=== PATIENT | female | born 2000 | race Caucasian/White ===

== ENCOUNTER → 2021-12-09 15:01 | Outpatient (BNVA) | payer MEDICAID, SELFPAY | PROVIDERS: Visit Provider Obstetrics & Gynecology | DX: Z34.90 Encounter for supervision of normal pregnancy, unspecified, unspecified trimester (principal) | CPT/HCPCS: 80307; 81000; 85027; 86592; 86762; 86803; 86850; 86900; 87086; 87340; 87491; 87591; 87806 ==

== ENCOUNTER → 2022-02-07 14:09 | Outpatient (BNVA) | payer MEDICAID, SELFPAY | PROVIDERS: Visit Provider Obstetrics & Gynecology | DX: Z36.89 Encounter for other specified antenatal screening (principal) | CPT/HCPCS: 76805 ==

== ENCOUNTER → 2022-02-21 13:42 | Outpatient (BNVA) | payer MEDICAID, SELFPAY | PROVIDERS: Visit Provider Obstetrics & Gynecology | DX: Z34.80 Encounter for supervision of other normal pregnancy, unspecified trimester (principal) | CPT/HCPCS: 81000 ==

== ENCOUNTER → 2022-03-07 14:10 | Outpatient (BNVA) | payer MEDICAID, SELFPAY | PROVIDERS: Visit Provider Obstetrics & Gynecology | DX: Z34.92 Encounter for supervision of normal pregnancy, unspecified, second trimester (principal) | CPT/HCPCS: 82950; 84315 ==

== ENCOUNTER → 2022-04-04 10:22 | Outpatient (BNVA) | payer MEDICAID, SELFPAY | PROVIDERS: Visit Provider Obstetrics & Gynecology | DX: Z34.92 Encounter for supervision of normal pregnancy, unspecified, second trimester (principal) | CPT/HCPCS: 84315; 85027 ==

== ENCOUNTER 2022-04-27 06:18 | Outpatient (CLI) | payer MEDICAID, SELFPAY ==
--- NOTE | 2022-04-27 06:24 | US_ITS ---
WS: [id number] Exam: US OB >= 14 weeks fetus [id number] Date/Time of Exam: 04/27/2022 6:24 AM Reason For Exam: O26.843 - Uterine size-date discrepancy, third trimester NUMBER: One PRESENTATION: Vertex CARDIAC ACTIVITY: 133 MOVEMENT: Satisfactory AMNIOTIC FLUID VOLUME: Satisfactory. ESTRADA is 16.4 cm PLACENTA: Anterior. No placenta previa. Grade 2. BIPARIETAL DIAMETER MEASUREMENTS: 7.9 cm, equals 31w6d. FEMORAL LENGTH MEASUREMENTS: 5.9 cm, equals 31w0d. ABDOMINAL CIRCUMFERENCE: 26.6 cm, equals 30w5d. ESTIMATED WEIGHT: 1672 g. ESTIMATED GESTATIONAL AGE: 31w2d US/US OB >= 14 weeks fetus [id number] IMPRESSION: Viable intrauterine with single fetus estimated at 31w2d MARISA 06/27/20 22.
== END 2022-04-27 06:19 | disposition home or self-care (01) ==
LOC: RAD 06:18
PROVIDERS: Visit Provider Obstetrics & Gynecology
DX: O26.843 Uterine size-date discrepancy, third trimester (principal)
CPT/HCPCS: 76805

== ENCOUNTER → 2022-05-15 14:04 | Outpatient (BNVA) | payer MEDICAID, SELFPAY | PROVIDERS: Visit Provider Obstetrics & Gynecology | DX: Z34.80 Encounter for supervision of other normal pregnancy, unspecified trimester (principal) | CPT/HCPCS: 81000 ==

== ENCOUNTER → 2022-05-31 09:21 | Outpatient (BNVA) | payer MEDICAID, SELFPAY | PROVIDERS: Visit Provider Obstetrics & Gynecology | DX: O26.843 Uterine size-date discrepancy, third trimester (principal); Z3A.00 Weeks of gestation of pregnancy not specified | CPT/HCPCS: 81000; 87081 ==

== ENCOUNTER → 2022-06-05 11:06 | Outpatient (BNVA) | payer MEDICAID, SELFPAY | PROVIDERS: Visit Provider Obstetrics & Gynecology | DX: Z34.80 Encounter for supervision of other normal pregnancy, unspecified trimester (principal) | CPT/HCPCS: 81000 ==

== ENCOUNTER 2022-06-06 09:50 | Outpatient (CLI) | payer MEDICAID, SELFPAY ==
[2022-06-06 10:11] VITALS: BP 117/69; PULSE 96
[2022-06-06 10:20] VITALS: BMI 23.1
[2022-06-06 10:24] VITALS: RESP 16; TEMP 36.1
[2022-06-06] MEDS: acetaminophen 325 mg Tablet 650 MG PO (10:39)
[2022-06-06 11:15] LABS: Add Urine Culture? Yes; Bacteria Urine 3+ /hpf; Bilirubin Urine Neg (Negative); Blood Urine Neg (Negative); Glucose Urine UA Norm (Normal); Ketones Urine Negative (Negative); Leukocyte Esterase Urine Negative (Negative); Nitrate Urine Negative (Negative); Protein Urine Neg (Negative); RBC Urine 0-4 /hpf (0-2); Urine Appearance Clear (CLEAR); Urine Color Yellow (Yellow); Urobilinogen Urine Norm (Negative); WBC Urine 0-4 /hpf (0-5); pH Urine 7 (5-7)
[2022-06-06 11:32] VITALS: BP 110/62; PULSE 89
[2022-06-06 11:45] VITALS: BP 110/62; PULSE 89
--- NOTE | 2022-06-06 14:03 | P.PCN_ITS ---
Procedure/Consent Procedure Narrative: NONSTRESS TEST: Place of test: [facility] [place]-L&D Indication: 21-year-old 1 para 0 at 37 weeks and 1 day with abdominal pain/back pain Date and time of test:06/06/2022, 11 AM Baseline: 125 Variability: Moderate variability Accelerations: Accelerations present Decelerations: No decelerations Tocometry: no Contractions INTERPRETATION: NST reactive, continue kick counts
== END 2022-06-06 11:45 | disposition home or self-care (01) ==
LOC: OPOB 09:55 → OBGYN 09:56
PROVIDERS: Visit Provider Obstetrics & Gynecology
DX: O26.899 Other specified pregnancy related conditions, unspecified trimester (principal); Z3A.00 Weeks of gestation of pregnancy not specified; M54.9 Dorsalgia, unspecified; R10.9 Unspecified abdominal pain
CPT/HCPCS: 59025; 81001; 87086; 99211

== ENCOUNTER → 2022-06-26 09:25 | Outpatient (BNVA) | payer MEDICAID, SELFPAY | PROVIDERS: Visit Provider Obstetrics & Gynecology | DX: Z36.4 Encounter for antenatal screening for fetal growth retardation (principal) | CPT/HCPCS: 76819 ==

== ENCOUNTER → 2022-06-26 10:00 | Outpatient (BNVA) | payer MEDICAID, SELFPAY | PROVIDERS: Visit Provider Obstetrics & Gynecology | DX: O26.843 Uterine size-date discrepancy, third trimester (principal); Z3A.00 Weeks of gestation of pregnancy not specified | CPT/HCPCS: 81000 ==

== ENCOUNTER 2022-06-30 21:00 | Inpatient (IN) | payer MEDICAID, SELFPAY ==
[2022-06-30] VITALS (39 sets, daily range): BP systolic 97–145; BP diastolic 51–83; PULSE 69–109; RESP 18; TEMP 36.4; O2SAT 91–100; BMI 25.3
[2022-06-30] MEDS: miSOPROStol 100 mcg tablet 25 MCG VAGINAL (15:48)
[2022-06-30 15:54] LABS: Basophils # 0.1 10^3/uL (0.0-0.1); Basophils % 0.4 %; Eosinophils # 0.1 10^3/uL (0.0-0.8); Eosinophils % 0.6 %; Hematocrit 31.7 % (37.0-47.0); Hemoglobin 10.8 g/dL (11.5-15.3); Lymphocytes # 1.7 10^3/uL (1.5-6.5); Lymphocytes % 13.4 %; Mean Corpuscular HGB Conc 34.1 g/dL (30.0-36.0); Mean Corpuscular Hemoglobin 31.8 pg (28.0-34.0); Mean Corpuscular Volume 93.2 fl (81-99); Mean Platelet Volume 10.6 fL (7.4-10.4); Monocytes # 0.7 10^3/uL (0.2-0.9); Monocytes % 5.4 %; Neutrophils # 9.73 10^3/uL (1.8-8.0); Neutrophils % 77.6 %; Nucleated Red Blood Cells % 0 %; Platelet Count 246 10^3/cmm (130-400); Red Cell Distribution Width 13.5 % (12.1-15.1); White Blood Count 12.5 10^3/uL (4.5-13.0)
--- NOTE | 2022-06-30 17:47 | PM.OPHPUD ---
Labor & Delivery H&P Update Date of Procedure: July 01, 2022 Date H&P Performed: 06/19/22 H&P update information: I have reviewed H&P completed within last 30 days, I have examined patient prior to procedure and No changes to prior documentation Admission Diagnosis: Preop diagnosis: Labor pain
--- NOTE | 2022-06-30 21:35 | ANES.PREANE2 ---
Pre-Anesthetic Assessment Height/Weight: Height 1.68 m Weight 71.214 kg Temp Pulse Resp BP Pulse Ox O2 Del Method 97.5 F L 93 18 116/61 91 06/30/22 15:13 06/30/22 21:31 06/30/22 15:07 06/30/22 21:31 06/30/22 21:27 06/30/22 16:00 Preop Diagnosis: Labor pain MANUEL Was Beta Dave taken within 24 hours: N/A Was Clonidine taken within 24 hours: N/A Social No alcohol and No tobacco Airway Submandibular: within normal limits Cervical ROM: within normal limits Mallampati: Class II Dentition: full History/ROS No significant history except as noted and No significant complaints Pulmonary None reported CV/HEM None reported None reported Hepatic None reported GI None reported Metabolic None reported Musc/skel None reported Neuropsych Anxiety Anesthetic Plan ASA status: 2 Anesthesia: Anesthesia Evaluation and Regional (specify below) Risk of > 500 ml blood loss (7ml/kg in children): No Medications/Allergies Home Medications Medication Instructions Recorded Confirmed Last Taken Type prenat.vits,alison,fkn-bpxp-vsyea 1 tab PO DAILY 12/09/21 06/30/22 06/29/22 21:00 History Allergies Allergy/AdvReac Type Severity Reaction Status Date / Time amoxicillin Allergy Severe rash Verified 06/26/22 10:46 Current Medications Generic Name Dose Route Start Last Admin Trade Name Freq PRN Reason Stop Dose Admin Misoprostol 25 mcg 06/30/22 15:15 06/30/22 15:48 Misoprostol 100 Mcg Tablet VAGINAL 06/30/22 23:16 25 mcg Q4H SHANNON Administration PFSH Anesthesia Family History Grandmother Stroke maternal Denies family history of Colon cancer Ovarian cancer Diabetes Clotting disorder Hyperlipidemia Breast cancer Anesthesia complication Bleeding disorder Hypertension Uterine cancer Thyroid condition Female Reproductive History : 1 Data Anesthesia : 06/30/22 15:30 Short CBC 06/30/22 Range/Units 15:30 WBC 12.5 (4.5-13.0) 10^3/uL Hgb 10.8 L (11.5-15.3) g/dL Hct 31.7 L (37.0-47.0) % MCV 93.2 (81-99) fl Plt Count 246 (130-400) 10^3/cmm Neut % (Auto) 77.6 % Neut # (Auto) 9.73 H (1.8-8.0) 10^3/uL Cardiac Studies: No Data to Display
--- NOTE | 2022-06-30 21:36 | ANES.PROC ---
Anesthesia Procedures Procedure/Date: 06/30/22 Epidural: Time Out Performed: Yes Consents Signed: Procedure Consent Consent: requested by attending/covering physician, from patient, risks and benefits reviewed and patient agrees to proceed Lumbar Level: L3-L4 Epidural position: sitting Epidural procedure: sterile prep of area, 1% lidocaine to numb the area, 18 g needle, neg for paresthesia, test dose given, 1.5% xylocaine 1:200k epi (5cc), 0.2% Ropivacaine bolus ml (4cc and Fentanyl 100mcg), placed PCEA, no systemic response, sterile dressing applied, L.U.D. no apparent complications and 0.2% Ropiavacaine @ mls/hr (13cc/hour) Additional Comments: NESHA at 6cm. Pt tolerated well
[2022-06-30] MEDS: acetaminophen 325 mg Tablet 650 MG PO (22:10)
[2022-06-30] MEDS: lactated ringers 1,000 ML 999 ML IV (22:11)
[2022-07-01] VITALS (34 sets, daily range): BP systolic 94–128; BP diastolic 53–75; PULSE 71–116; RESP 16–18; TEMP 36.6–36.8
--- NOTE | 2022-07-01 02:48 | P.PCNOB_ITS ---
Delivery Note: Date of delivery: July 01, 2022 Pre-delivery diagnoses: Term Post-delivery diagnoses: Term delivered Procedure: Spontaneous vaginal delivery Delivering Physician: Tye Doyle MD Estimated blood loss (mL): 300 Pre-Delivery Course: Ms. Goins is a 21 year old uncertain LMP of 09/19/2021 with an MARISA of 06/26/2022 based on LMP and consistent with 13 week sonogram, placing her at 40-4/7 weeks gestation. Admitted for elective induction. HPI: Received appropriate care. Daily vitamins since two months prior to conception. labs have all been normal, including negative for HIV. She was found to negative for Group B Strep from screening at 36 weeks. She has gained approximately 30 lbs throughout the . She denies a history of HTN during . Glucose tolerance screening for gestational diabetes was negative. Delivery: The patient was noted to be complete and pushing, so was placed in the dorsal lithotomy position, prepped and draped in the usual sterile fashion for a vaginal delivery. Pt. Noted to have epidural anesthesia. At [time] the patient delivered a viable term male weighing 3550 g with scores of 8 and 9 at one and five minutes, respectively. The vertex was delivered spontaneously over intact perineum. The patient was asked to push and the head delivered spontaneously in the MADDY position, over an intact perineum. A nuchal cord was checked and 1 noted, and delivered through around head as necessary. The anterior shoulder delivered easily and the posterior shoulder followed. The remainder of the was easily delivered and the oropharynx and nasopharynx was bulb suctioned. The infant was noted to have spontaneous cry and spontaneous movement of all four extremities. The cord was clamped x 2 and cut and noted to have 2 arteries and one vein. The infant was passed to the mother's abdomen where nursing personnel were in attendance. Cord blood sample was then obtained. The placenta delivered intact spontaneously and the uterus was explored. 20 units of Pitocin was placed in the IV bag to firm the uterus. Examination of the cervix and vaginal vault did not reveal any lacerations. A vaginal pack was then placed. Examination of the perineum showed no laceration. The vaginal pack was then removed. The patient tolerated this procedure well, and recovered in L&D with her in their LDR room. All sponge and needle counts were correct. Post-Delivery Status: Good and stable History History History 1 Term 0 0 Miscarriages/Ectopic 0 Living Children 0 A&P Assessment and plan (1) Term delivered: Status: Acute Coding Level of Care Code Acute Dental Insurance Biller for Chg Fwd Diagnoses Term delivered O80
[2022-07-01] MEDS: benzocaine-menthol 78 gm Canister 1 SPRAY TOPICAL (08:00)
[2022-07-01] MEDS: ibuprofen 800 mg tablet PO ×3 (08:00→21:16)
[2022-07-01] MEDS: docusate sodium 100 mg Capsule PO ×2 (08:01→21:16)
[2022-07-01] MEDS: prenatal vitamin Capsule 1 CAP PO (08:01)
[2022-07-01] MEDS: lanolin oint 7 gm 1 APPLIC TOPICAL (08:44)
[2022-07-01 14:58] LABS: Hematocrit 26.1 % (37.0-47.0); Hemoglobin 9.2 g/dL (11.5-15.3); Mean Corpuscular HGB Conc 35.2 g/dL (30.0-36.0); Mean Corpuscular Hemoglobin 31.5 pg (28.0-34.0); Mean Corpuscular Volume 89.4 fl (81-99); Mean Platelet Volume 10.7 fL (7.4-10.4); Platelet Count 194 10^3/cmm (130-400); Red Blood Count 2.92 10^6/uL (4.1-5.3); Red Cell Distribution Width 13.3 % (12.1-15.1); White Blood Count 13.3 10^3/uL (4.5-13.0)
[2022-07-02 02:53] VITALS: TEMP 36.9
[2022-07-02 03:38] VITALS: BP 104/61; PULSE 104
[2022-07-02 07:00] VITALS: RESP 15
[2022-07-02] MEDS: prenatal vitamin Capsule 1 CAP PO (08:38)
[2022-07-02] MEDS: docusate sodium 100 mg Capsule PO (08:38)
[2022-07-02] MEDS: ibuprofen 800 mg tablet PO (08:38)
[2022-07-02 09:31] VITALS: BP 113/67; PULSE 88; TEMP 36.6
--- NOTE | 2022-07-02 10:28 | PM.OBGYDC ---
Discharge Providers LANE MARKER INSTALLER Date of Admission: 06/30/22 21:00 Date of Discharge: 07/02/22 Attending Provider at Admission: Tye Doyle MD Attending Provider at Discharge: Tye Doyle MD Primary LANE MARKER INSTALLER: Tye Doyle MD Diagnoses at Discharge Discharge Diagnosis (1) Term delivered: Status: Acute Reason for Visit Reason for Visit: Induction of Labor Brief History: Mrs. Arteaga is a 21-year-old female with a term admitted for elective induction Hospital Course Hospital Course Ms. Goins is a 21 year old uncertain LMP of 09/19/2021 with an MARISA of 06/26/2022 based on LMP and consistent with 13 week sonogram, placing her at 40-4/7 weeks gestation. Who has been receiving care from [facility]. Admitted for elective induction. she continues to feel movements. She denies vaginal bleeding or rupture of membranes. HPI: Received appropriate care. Daily vitamins since two months prior to conception. labs have all been normal, including negative for HIV. She was found to negative for Group B Strep from screening at 36 weeks. She has gained approximately [3] lbs throughout the . She denies a history of HTN during . Glucose tolerance screening for gestational diabetes was negative. She progressed to have a spontaneous vaginal delivery without complications. She delivered a term male infant with a birthweight of 4 3550 g, Apgars 8/9. observation was uneventful. She is day 1, afebrile and hemodynamically stable. Tolerating diet well. Ambulating without difficulty. Breast-feeding without difficulty. She refers she is planning to start using progesterone only OCP. Information Peripartum Data: Delivery Method: Vaginal Physical Exam Narrative: GA; alert and oriented x 3 HEENT: normal Breasts: engorged Nipples - skin intact Lungs; clear to auscultation Heart: regular rhythm, no murmurs. Abd: Appropriately tender. BS+. Uterine fundus below umbilicus. No Fundal Tenderness. Perineum: normal lochia. Extremities: no edema, no cyanosis, no tenderness. Urinary Catheter Management: Bah: Cath Placed During This Visit: yes, but has since been removed by the nurse Reason for Continuing Indwelling Catheter: Decision to DC Catheter Urinary Catheter Date of Insertion: 06/30/22 Urinary Catheter Time of Insertion: 22:20 Date Urinary Catheter Removed: 07/01/22 Time Urinary Catheter Discontinued: 02:05 History History History 1 Term 0 0 Miscarriages/Ectopic 0 Living Children 0 Discharge Data Studies Completed and Pending Laboratory Results WBC 13.3 10^3/uL (4.5-13.0) H 07/01/22 14:44 RBC 2.92 10^6/uL (4.1-5.3) L 07/01/22 14:44 Hgb 9.2 g/dL (11.5-15.3) L 07/01/22 14:44 Hct 26.1 % (37.0-47.0) L 07/01/22 14:44 MCV 89.4 fl (81-99) 07/01/22 14:44 MCH 31.5 pg (28.0-34.0) 07/01/22 14:44 MCHC 35.2 g/dL (30.0-36.0) 07/01/22 14:44 RDW 13.3 % (12.1-15.1) 07/01/22 14:44 Plt Count 194 10^3/cmm (130-400) 07/01/22 14:44 MPV 10.7 fL (7.4-10.4) H 07/01/22 14:44 Neut % (Auto) 77.6 % 06/30/22 15:30 Lymph % (Auto) 13.4 % 06/30/22 15:30 Cassia % (Auto) 5.4 % 06/30/22 15:30 Eos % (Auto) 0.6 % 06/30/22 15:30 Baso % (Auto) 0.4 % 06/30/22 15:30 Neut # (Auto) 9.73 10^3/uL (1.8-8.0) H 06/30/22 15:30 Lymph # (Auto) 1.7 10^3/uL (1.5-6.5) 06/30/22 15:30 Cassia # (Auto) 0.7 10^3/uL (0.2-0.9) 06/30/22 15:30 Eos # (Auto) 0.1 10^3/uL (0.0-0.8) 06/30/22 15:30 Baso # (Auto) 0.1 10^3/uL (0.0-0.1) 06/30/22 15:30 Nucleated RBC % (auto) 0 % 06/30/22 15:30 Nucleated RBCs # 0.0 /100WBC 06/30/22 15:30 Vitals Last Vital Signs Temp 97.9 F 07/02/22 09:31 Pulse 88 07/02/22 09:31 Resp 15 07/02/22 07:00 BP 113/67 07/02/22 09:31 Pulse Ox 91 06/30/22 21:27 O2 Del Method 06/30/22 16:00 Discharge Plan Discharge Patient Disposition: Home Condition: Stable Prescriptions: New acetaminophen 325 mg capsule 325 mg PO Q4H PRN (Reason: fever or pain) Qty: 60 0RF docusate sodium [Colace] 100 mg capsule 100 mg PO BID Qty: 60 0RF ferrous sulfate [Iron (ferrous sulfate)] 325 mg (65 mg iron) tablet 325 mg PO BID Qty: 60 0RF Continued prenat.vits,alison,hpe-qbul-udvks Tablet 1 tab PO DAILY Discharge Orders: Discharge Order (Routine); Ordered 07/02/22 Ordered By: Tye Doyle Referrals: Tey Doyle MD [Physician] - 6 Weeks Discharge Diet: Advance as tolerated and Usual diet Discharge Activity: Limit activity as instructed Patient Instructions: Sponge Bathing Your Baby (DC), Tub Bathing Your Baby (DC), Caring for Your Baby (DC), Shaken Baby Syndrome (DC), Jaundice in Newborns (DC), Lay Person CPR on Newborns (DC), Your 's Appearance (DC), Safe Sleeping for Infants (DC), Phototherapy for Jaundice in Newborns (DC), Opioid Safety Activity Restrictions/Additional Instructions: 1. Please call [facility] on next working day to make your post appointment in 6 weeks. 2. Please stay home until you come back to the clinic on first post-operative check up. 3. Please follow instructions on your medications CAREFULLY. 4. If you have abdominal incision, do not cover it unless dressing is necessary because of drainage. OK to shower, but avoid bath. Leave steri-strips until they fall off. If they are still on one week after surgery, you may remove them. 5. If you had vaginal surgery or vaginal repair, Dr. Doyle may instruct you to take SITZ bath. 6. Yellow, blood tinged odorous vaginal discharge is usually normal after hysterectomy or vaginal surgeries. 7. No sexual intercourse, tampons, or douches until you are completely released from the post-operative care. 8. Avoid constipation by eating right and maybe using some Metamucil or Milk of Magnesia. 9. All prescription refills are given during the working hours. Please do no wait till it runs out. Call the clinic at [phone] before your medication runs out. The clinic will get in touch with your doctor to prescribe medications if necessary. 10. Please remain within 40 mile radius from our hospital because emergencies do happen now and then during the post-operative period. 11. If you have stairs at home, take one step at a time slowly and minimize the number of trips. It helps to stay in one floor for the next few days. No lifting except what you can lift by one hand until you are released from the post-operative care. 12. Driving is discouraged until you are well healed. It may be 3-4 weeks before you feel strong enough to drive. You should be able to turn and look through the rear window without pain and you should be able to push the brake pedal very hard without pain before you drive. No fast rules, but SAFETY should be your primary concern. DO NOT drive if you are on sedating medications such as narcotics. 13. Call the clinic (during working hours) to make urgent appointment or go to the Emergency room, if any of the following occurs: i. Vaginal bleeding becomes heavy, more than a period. ii. Incision becomes red and sore, or drains pus. iii. Your temperature is over 100.4 or you have chill. iv. IV site becomes red and swollen (a little ``knot?? is usually OK) v. Persistent nausea and vomiting vi. Persistent constipation or diarrhea vii. Rash or allergic reaction to medications. Discharge Attestations LANE MARKER INSTALLER Time Spent in Discharge Care*: greater than 30 min Coding Level of Care Code Acute Programming Instructor for Chg Fwd Diagnoses Term delivered O80
[2022-07-02 11:38] VITALS: BP 113/69; PULSE 97; TEMP 36.9
[2022-07-02 11:57] VITALS: BP 113/69; PULSE 97; TEMP 36.9
--- NOTE | 2022-07-03 13:09 | ANE.PACU2 ---
Inpatient post-anesthesia follow up: Airway intact: Yes Vital signs: Temperature 98.4 F Pulse Rate 97 Respiratory Rate 15 Blood Pressure 113/69 Pulse Oximetry 91 Oxygen Delivery Me thod Room Air Oxygen Flow Rate Fraction of Inspir ed Oxygen Hydration adequate: Yes Nausea and vomiting: No Pain level: 2 Mental status: Baseline
== END 2022-07-02 11:34 | disposition home or self-care (01) | DRG 807 ==
LOC: OPOB 07-01 03:00 → OBGYN 07-01 03:00
PROVIDERS: Admitting Provider Obstetrics & Gynecology; Visit Provider Obstetrics & Gynecology
DX: O69.2XX0 Labor and delivery complicated by other cord entanglement, with compression, not applicable or unspecified (principal); Z37.0 Single live birth; O48.0 Post-term pregnancy; Z3A.40 40 weeks gestation of pregnancy
CPT/HCPCS: 36415; 51702; 59025; 59409; 85025; 85027; 96374; 99211; J2795; J3010

== ENCOUNTER → 2023-09-04 12:48 | Outpatient (BNVA) | payer MEDICAID, SELFPAY | PROVIDERS: Visit Provider Nurse Practitioner Women's Health | DX: Z34.90 Encounter for supervision of normal pregnancy, unspecified, unspecified trimester (principal) | CPT/HCPCS: 80307; 81000; 85027; 86592; 86762; 86803; 86850; 86900; 87086; 87340; 87806 ==

== ENCOUNTER → 2023-09-27 10:31 | Outpatient (BNVA) | payer MEDICAID, SELFPAY | PROVIDERS: Visit Provider Obstetrics & Gynecology | DX: Z34.80 Encounter for supervision of other normal pregnancy, unspecified trimester (principal) | CPT/HCPCS: 76801; 81000; 87491; 87591; 88175 ==

== ENCOUNTER → 2023-10-29 08:16 | Outpatient (BNVA) | payer MEDICAID, SELFPAY | PROVIDERS: Visit Provider Obstetrics & Gynecology | DX: Z34.80 Encounter for supervision of other normal pregnancy, unspecified trimester (principal) | CPT/HCPCS: 81000 ==

== ENCOUNTER → 2023-11-15 14:33 | Outpatient (BNVA) | payer MEDICAID, SELFPAY | PROVIDERS: Visit Provider Nurse Practitioner Women's Health | DX: Z34.92 Encounter for supervision of normal pregnancy, unspecified, second trimester (principal) | CPT/HCPCS: 76805 ==

== ENCOUNTER → 2023-12-12 12:04 | Outpatient (BNVA) | payer MEDICAID, SELFPAY | PROVIDERS: Visit Provider Nurse Practitioner Women's Health | DX: Z36.87 Encounter for antenatal screening for uncertain dates (principal) | CPT/HCPCS: 76816; 82950; 84315 ==

== ENCOUNTER → 2023-12-26 13:17 | Outpatient (BNVA) | payer MEDICAID, SELFPAY | PROVIDERS: Visit Provider Nurse Practitioner Women's Health | DX: Z34.82 Encounter for supervision of other normal pregnancy, second trimester (principal) | CPT/HCPCS: 76815 ==

== ENCOUNTER → 2024-01-10 08:06 | Outpatient (BNVA) | payer MEDICAID, SELFPAY | PROVIDERS: Visit Provider Obstetrics & Gynecology | DX: Z34.80 Encounter for supervision of other normal pregnancy, unspecified trimester (principal) | CPT/HCPCS: 84315; 85025 ==

== ENCOUNTER → 2024-03-06 11:06 | Outpatient (BNVA) | payer MEDICAID, SELFPAY | PROVIDERS: Visit Provider Nurse Practitioner Women's Health | DX: Z34.90 Encounter for supervision of normal pregnancy, unspecified, unspecified trimester (principal) | CPT/HCPCS: 76816; 84315; 87081 ==

== ENCOUNTER → 2024-03-27 08:16 | Outpatient (BNVA) | payer MEDICAID, SELFPAY | PROVIDERS: Visit Provider Obstetrics & Gynecology | DX: Z34.80 Encounter for supervision of other normal pregnancy, unspecified trimester (principal); Z87.59 Personal history of other complications of pregnancy, childbirth and the puerperium; Z86.59 Personal history of other mental and behavioral disorders; Z36.2 Encounter for other antenatal screening follow-up | CPT/HCPCS: 81000 ==

== ENCOUNTER 2024-03-28 21:35 | Inpatient (IN) | payer MEDICAID, SELFPAY ==
[2024-03-28] VITALS (13 sets, daily range): BP systolic 119–131; BP diastolic 59–79; PULSE 92–110; O2SAT 98–100; BMI 26.6
[2024-03-28 21:39] LABS: Basophils % 0.3 %; Eosinophils # 0.1 10^3/uL (0.0-0.8); Eosinophils % 0.7 %; Hematocrit 34.2 % (36-47); Lymphocytes # 2.2 10^3/uL (0.8-4.8); Lymphocytes % 18.5 %; Mean Corpuscular HGB Conc 34.8 g/dL (30-55); Mean Corpuscular Hemoglobin 31.7 pg (27-33); Mean Corpuscular Volume 91.2 fl (85-98); Mean Platelet Volume 10.1 fL (7.4-10.4); Monocytes # 0.7 10^3/uL (0.2-0.9); Monocytes % 5.5 %; Neutrophils # 8.81 10^3/uL (1.8-7.7); Neutrophils % 73.6 %; Nucleated Red Blood Cells % 0 %; Platelet Count 240 10^3/cmm (157-399); Red Blood Count 3.75 10^6/uL (3.85-5.65); Red Cell Distribution Width 13.7 % (12.1-15.1); White Blood Count 11.97 10^3/uL (3.29-11.43)
[2024-03-28] MEDS: lactated ringers 1,000 ML 999 ML IV ×2 (21:41→23:04)
--- NOTE | 2024-03-28 22:19 | P.HP_ITS ---
Providers/Chief Complaint 2 Admitting Physician: Marycruz Ellis DO Primary SET UP INSPECTOR: Dr. Doyle Chief Complaint: contractions HPI SET UP INSPECTOR History of Present Illness Amarilis Arteaga is a 23 year old female G2, P1 with LMP 06/28/2023, and MARISA of 04/03/2024 at 39 weeks gestation admitted today to labor and delivery with complaints of increasing contractions every 3 to 5 minutes. Onset of contractions early this a.m. Patient denies leakage of fluid or vaginal bleeding. She admits to good movement. Patient denies any problems or complications during this or her past . Present Details : 2 Para: 1 Date of Last Menstrual Period: 06/28/23 Calculated Date of Delivery: 04/03/24 Gestational Age Based on Last Menstrual Period: 39 Obstetrical complications: none Medical complications OB: none Review of Systems 2 Const: Denies: fever(s) Eyes: Denies: floaters Card: Denies: swelling of feet/ankles GI: Denies: abdominal pain, nausea, vomiting, heartburn or constipation : Reports: other (contractions- irreg ); Denies: dysuria, vaginal bleeding or vaginal discharge (denies LOF ) Musc: Denies: back pain or muscle cramps Neuro: Denies: headache(s) Psych: Denies: anxiety or depression Medications/Allergies Home Medications Medication Instructions Recorded Confirmed Last Taken Type PNV 153-FA 400 mcg-om3 35 mg-dha tab PO DAILY 09/27/23 03/27/24 Unknown History 25 mg-epa 5 mg-fish oil chew tablet ( Gummies) Allergies Allergy/AdvReac Type Severity Reaction Status Date / Time amoxicillin Allergy Severe rash Verified 03/27/24 13:20 PFSH SET UP INSPECTOR 2 PFSH: Medical History No pertinent past medical history neghx: htn,dm,thyroid,dvt/pe PCP: none Surgical History No pertinent past surgical history Family History Grandmother Stroke maternal Denies family history of Colon cancer Ovarian cancer Diabetes Clotting disorder Hyperlipidemia Breast cancer Anesthesia complication Bleeding disorder Hypertension Uterine cancer Thyroid disease Other Female Reproductive History: Hx Age of Menarche: 13 Duration of menses: 3-5 days Date of Last Menstrual Period: 06/28/23 Menstrual flow: normal/abnormal: abnormal Sexual History: Are you sexually active?: Yes How old were you when you first had sex?: 16 How many partners have you had?: 5 How long have you been with your current partner?: Since 2018 What is your sexual preference?: Heterosexual STD History Comment: None History History History 2 2 Term 1 0 Miscarriages/Ectopic 0 Living Children 1 Care MARISA Calculator 2 Estimated Delivery Date Method Current WG Current Estimate 04/03/24 LMP (Uncertain) 39w 1d Other Estimates 03/29/24 Ultrasound #1 39w 6d Specific Issues/Plans * poorly visualized spine-- 24 wk f/u inconclusive; rpet 26 weeks * hx PP depression; counseled on beginning treatment at 36 weeks * Breech-- reasses at 36 weeks Vitals/I&O/Wt Last Vital Signs Pulse 99 03/28/24 22:05 BP 119/74 03/28/24 22:05 O2 Del Method Room Air 03/28/24 22:03 Weight last 48 hrs Weight 74.843 kg Physical Exam 2 Narrative: 23-year-old female awake and alert. HENMT: COMMON NORMALS: normocephalic Resp: COMMON NORMALS: normal respiratory effort and clear to auscultation bilaterally Cardio: COMMON NORMALS: regular rate and regular rhythm Back/Pelvis: OTHER: Abdomen?soft, gravid Extremity: COMMON NORMALS: normal to inspection, no clubbing, cyanosis or edema, no calf tenderness and no pedal edema Neuro: COMMON NORMALS: patient oriented x3, CN's II-XII intact bilaterally and moves all extremities Data 03/28/24 21:31 Results Labs OB ([facility]): 2 Obstetrics US 03/06/24 Obstetrics US/Biophysical Profile Blood Type O Positive 03/28/24 Antibody Screen Negative 03/28/24 Hct 34.2 % (36-47) L 03/28/24 Hgb 11.90 g/dL (11.27-16.99) 03/28/24 Rho(D) Type Rh positive 03/28/24 Plt Count 240 10^3/cmm (157-399) 03/28/24 Hep Bs Antigen Non-reactive (Nonreactive) 09/04/23 Hepatitis C Antibody Non-reactive (Nonreactive) 09/04/23 Rubella IgG Antibody > 500.0 IU/mL (0.0-10.0) H 09/04/23 RPR Nonreactive (Nonreactive) 09/04/23 HIV 1&2 Ab & HIV 1 Ag Non-reactive (Non-Reactiv) 09/04/23 C.trachomatis RNA (TMA) Not detected (NOT DETECTED) N.gonorrhoeae RNA (TMA) Not detected (NOT DETECTED) T. vaginalis Amp RNA Not detected (NOT DETECTED) 09/27/23 Chlamydia/GC Comment See note 09/27/23 Cystic Fibrosis Screen Negative 09/27/23 Gest Glucose Tolerance 129 mg/dL (70-139) 12/12/23 Urine Opiates Screen Negative ng/mL (Negative) 09/04/23 Ur Barbiturates Screen Negative ng/mL (Negative) 09/04/23 Ur Phencyclidine Scrn Negative ng/mL (Negative) 09/04/23 Ur Amphetamines Screen Negative ng/mL (Negative) 09/04/23 U Benzodiazepines Scrn Negative ng/mL (Negative) 09/04/23 Urine Cocaine Screen Negative ng/mL (Negative) 09/04/23 U Marijuana (THC) Screen Negative ng/mL (Negative) 09/04/23 Micro Urine Specimen 09/04/23 Pap Smear Interpret See note 09/27/23 Attestations 2 Medical Necessity Statement*: Patient admitted to labor and delivery for management of labor in active labor at 6 cm. Coding Level of Care Code Acute Code for g Fwd
[2024-03-28] MEDS: ROPivacaine syringe 100 MG/50 ML SYRINGE 10 MG EPIDURAL (23:11)
--- NOTE | 2024-03-28 23:17 | P.ANESASSM_ITS ---
Pre-Anesthetic Assessment Height/Weight: Height 1.68 m Weight 74.843 kg Pulse BP Pulse Ox O2 Del Method 92 119/59 98 Room Air 03/28/24 23:06 03/28/24 23:04 03/28/24 23:06 03/28/24 22:03 Preop Diagnosis: IUP Labor epidural Familial anesthetic complications: None Was Beta Adve taken within 24 hours: N/A Was Clonidine taken within 24 hours: N/A Last intake: 03/28/22 @ 2200 Social No alcohol and No tobacco Exam alert, oriented x 3 and clear to auscultation bilaterally Airway Mallampati: Class I Dentition: full History/ROS No significant history except as noted Pulmonary None reported CV/HEM None reported None reported Hepatic None reported GI None reported Metabolic None reported Musc/skel None reported Neuropsych None reported Anesthetic Plan ASA status: 2 Anesthesia: Anesthesia Evaluation and Regional (specify below) (epidural) Risk of > 500 ml blood loss (7ml/kg in children): Yes, adequate IV access and fluids planned Medications/Allergies Home Medications Medication Instructions Recorded Confirmed Last Taken Type PNV 153-FA 400 mcg-om3 35 mg-dha tab PO DAILY 09/27/23 03/27/24 Unknown History 25 mg-epa 5 mg-fish oil chew tablet ( Gummies) Allergies Allergy/AdvReac Type Severity Reaction Status Date / Time amoxicillin Allergy Severe rash Verified 03/27/24 13:20 Current Medications Generic Name Dose Route Start Last Admin Trade Name Freq PRN Reason Stop Dose Admin Ropivacaine 100 mg in 50 mls @ 10 mls/hr 03/28/24 21:30 03/28/24 23:11 Naropin Syringe EPIDURAL 10 mls/hr .Q5H SHANNON Administration Lactated Ringer's 1,000 mls @ 999 mls/hr 03/28/24 21:24 03/28/24 23:04 Lactated Ringers IV 999 mls/hr .Q1H1M PRN Administration See label comments PFSH Anesthesia Medical History No pertinent past medical history neghx: htn,dm,thyroid,dvt/pe PCP: none Surgical History No pertinent past surgical history Family History Grandmother Stroke maternal Denies family history of Colon cancer Ovarian cancer Diabetes Clotting disorder Hyperlipidemia Breast cancer Anesthesia complication Bleeding disorder Hypertension Uterine cancer Thyroid disease Female Reproductive History Date of last menstrual period: 06/28/23 : 2 Data Anesthesia 03/28/24 21:31 Short CBC 03/28/24 Range/Units 21:31 WBC 11.97 H (3.29-11.43) 10^3/uL Hgb 11.90 (11.27-16.99) g/dL Hct 34.2 L (36-47) % MCV 91.2 (85-98) fl Plt Count 240 (157-399) 10^3/cmm Neut % (Auto) 73.6 % Neut # (Auto) 8.81 H (1.8-7.7) 10^3/uL Blood Bank 03/28/24 21:31 Blood Type O Positive Rho(D) Type Rh positive Antibody Screen Negative Cardiac Studies: 2 No Data to Display Anesthesia Procedures Epidural Time Out Performed: Yes Consents Signed: Procedure Consent Consent: requested by attending/covering physician, from patient, risks and benefits reviewed and patient agrees to proceed Lumbar Level: L4-L5 Epidural position: sitting Epidural procedure: sterile prep of area, 1% lidocaine to numb the area, 18 g needle, negative for paresthesia passed, neg for paresthesia, test dose given, 1.5% xylocaine 1:200k epi, 0.2% Ropivacaine bolus ml (5), placed PCEA, no systemic response, sterile dressing applied, L.U.D. no apparent complications and 0.2% Ropiavacaine @ mls/hr (10) Additional Comments: NESHA 5cm, catheter easily threaded to 5cm in the space. Pt reporting decreased pain with contractions
[2024-03-29] VITALS (25 sets, daily range): BP systolic 95–142; BP diastolic 51–95; PULSE 78–107; TEMP 36.7–37.2; O2SAT 96
[2024-03-29] MEDS: oxytocin 30 UNIT/500 ML BAG 600 UNIT IV (03:09)
[2024-03-29] MEDS: dextrose 5%-lactated ringers 1,000 ML 125 ML IV (03:10)
--- NOTE | 2024-03-29 03:29 | P.PCNOB_ITS ---
Delivery Note: Date of delivery: March 29, 2024 Pre-delivery diagnoses: 39-week gestation GBS negative Meconium stained fluid Post-delivery diagnoses: 39-week gestation GBS negative Meconium stained fluid Tight nuchal cord Procedure: of a viable female Op report anesthesia: Epidural Delivering Physician: Marycruz Ellis DO Estimated blood loss (mL): 300 Findings: Viable female Delivery: 23-year-old female G2, P2 delivered via of viable female OA presentation with a tight nuchal cord that was clamped and cut at the perineum. The posterior hand delivered followed by the anterior and posterior shoulders with the remainder the baby's body to follow. A copious amount of fluid exited after delivery of the baby. The baby was placed on the warmer and nursing staff began there assessment and treatment, including DeLee suctioning of greater than 18 cc of meconium fluid. Oxygen was given by facemask. Cord pH and cord blood was drawn and handed off. The uterus was massaged and the placenta presented in a [place] presentation with trailing membranes. Pitocin IV solution was started in a bolus manner. The uterus firmed well with minimal bleeding. The vaginal vault was explored with no lacerations noted. The uterus again was massaged and remained firm. Patient's perineum cleaned and dried. Needle instrument and sponge count is correct. ?8/8/9 weight?pending anesthesia?epidural. Post-Delivery Status: Stable History History History 2 Term 2 0 Miscarriages/Ectopic 0 Living Children 2 Past Pregnancies Del. Date GA/Weeks Outcome Route Wt Inf Gender Labor Lgth Comp. Anesth esia Location 03/29/24 39 live - full term Vaginal Female regional A&P Assessment and plan (1) Spontaneous vaginal delivery: Began care (2) Meconium stained amniotic fluid, delivered, current hospitalization: (3) Nuchal cord: (4) History of depression: (5) Supervision of other normal : Coding Level of Care Code Acute Code for Chg Fwd Diagnoses Spontaneous vaginal delivery O80 Meconium stained amniotic fluid, delivered, current hospitalization O77.0 Nuchal cord History of depression Z87.59; Z86.59 Supervision of other normal Z34.80
[2024-03-29] MEDS: benzocaine-menthol 78 gm Canister 1 SPRAY TOPICAL (09:25)
[2024-03-29] MEDS: lanolin oint 7 gm 1 APPLIC TOPICAL (09:25)
[2024-03-29] MEDS: ibuprofen 800 mg tablet PO ×3 (09:25→21:03)
--- NOTE | 2024-03-29 12:27 | PM.OBGYPN ---
BUSINESS QUALITY ASSURANCE ANALYST Subjective Subjective: Interval history: 23-year-old female G2, P2 s/p viable female. Patient doing well without complaints, has been ambulating and tolerating a regular diet. Patient is breast-feeding well. Labor: Station: +2 Amniotic Membrane Status: Ruptured Monitor Mode: Palpation Contraction Pattern: Regular Vitals/I&O/Wt Last Vital Signs Temp 99.0 F 03/29/24 09:03 Pulse 89 03/29/24 09:03 BP 121/77 03/29/24 09:03 Pulse Ox 98 03/28/24 23:06 O2 Del Method Room Air 03/29/24 09:03 03/28/24 03/29/24 03/29/24 22:59 06:59 14:59 Intake Total 1000 / 1000 1340 / 2340 689.583 / 689.583 Output Total 700 / 700 Balance 1000 / 1000 640 / 1640 689.583 / 689.583 Weight last 48 hrs Weight 74.843 kg Physical Exam Back/Pelvis: OTHER: Abdomen?soft, fundus firm well below umbilicus. Lochia?light Extremity: COMMON NORMALS: normal to inspection, no clubbing, cyanosis or edema and no calf tenderness Urinary Catheter Management: Bah: Cath Placed During This Visit: yes, but has since been removed by the nurse Reason for Continuing Indwelling Catheter: Required Immobilization for Trauma or Surgery or Anesthesia Urinary Catheter Date of Insertion: 03/28/24 Urinary Catheter Time of Insertion: 23:49 Date Urinary Catheter Removed: 03/29/24 Time Urinary Catheter Discontinued: 02:59 Data 03/28/24 21:31 A&P Assessment and plan (1) Spontaneous vaginal delivery: Began care (2) Meconium stained amniotic fluid, delivered, current hospitalization: (3) Nuchal cord: (4) History of depression: (5) Supervision of other normal : Attestations Medical Necessity Statement*: Patient was admitted to labor and delivery for management of labor and now continues with care. Anticipate discharge 03/30/2024. Coding Level of Care Code Acute Code for Chg Fwd Diagnoses Spontaneous vaginal delivery O80 Meconium stained amniotic fluid, delivered, current hospitalization O77.0 Nuchal cord History of depression Z87.59; Z86.59 Supervision of other normal Z34.80
[2024-03-29 15:58] LABS: Hematocrit 31.5 % (36-47); Mean Corpuscular Hemoglobin 31.4 pg (27-33); Mean Corpuscular Volume 92.4 fl (85-98); Mean Platelet Volume 9.8 fL (7.4-10.4); Platelet Count 219 10^3/cmm (157-399); Red Blood Count 3.41 10^6/uL (3.85-5.65); Red Cell Distribution Width 13.7 % (12.1-15.1); White Blood Count 13.04 10^3/uL (3.29-11.43)
[2024-03-29] MEDS: docusate sodium 100 mg Capsule PO (21:03)
[2024-03-30 05:24] VITALS: BP 106/72; PULSE 82; RESP 17; O2SAT 97
--- NOTE | 2024-03-30 09:22 | ANE.PACU2 ---
Inpatient post-anesthesia follow up: Airway intact: Yes Vital signs: Temperature 98.2 F Pulse Rate 82 Respiratory Rate 17 Blood Pressure 106/72 Pulse Oximetry 97 Oxygen Delivery Me thod Room Air Oxygen Flow Rate Fraction of Inspir ed Oxygen Hydration adequate: Yes Nausea and vomiting: No Pain level: 2 Mental status: Baseline Epidural Start/End: Epidural Start Date: 03/28/24 Epidural Start Time: 22:57 Epidural End Date: 03/29/24 Epidural End Time: 03:29
--- NOTE | 2024-03-30 10:12 | P.DS_ITS ---
Discharge Providers [employer] Date of Admission: 03/28/24 21:35 Date of Discharge: 03/30/24 Attending Provider at Admission: Marycruz Ellis DO Attending Provider at Discharge: Marycruz Ellis DO Primary [employer]: Dr. Doyle Diagnoses at Discharge Discharge Diagnosis (1) Spontaneous vaginal delivery: Details from hospital stay: 23-year-old female G2, P2 delivered via of viable female after admission for active labor. Patient progressed in an uneventful manner with epidural anesthesia. Patient is tolerating regular diet, voiding and breast-feeding without difficulty. She denies headache, blurred vision, shortness of breath, chest pain. and discharge expectations have been reviewed, patient verbalizes understanding. VSS, afebrile Exam?unremarkable Status: Acute (2) Meconium stained amniotic fluid, delivered, current hospitalization: Status: Acute (3) Nuchal cord: Status: Acute (4) History of depression: Status: Acute (5) Supervision of other normal : Status: Acute Reason for Visit Reason for Visit: contractions Brief History: 23-year-old female G2 now P2 delivered v ia after admission for active labor. Hospital Course Hospital Course See above Information Peripartum Data: Infant Delivery Method: Vaginal Laceration description: None Episiotomy description: None complications: none Physical Exam Back/Pelvis: OTHER: Abdomen?soft, fundus firm well below umbilicus. Lochia?light Extremity: COMMON NORMALS: normal to inspection, no clubbing, cyanosis or edema and no calf tenderness Urinary Catheter Management: Bah: Cath Placed During This Visit: yes, but has since been removed by the nurse Reason for Continuing Indwelling Catheter: Required Immobilization for Trauma or Surgery or Anesthesia Urinary Catheter Date of Insertion: 03/28/24 Urinary Catheter Time of Insertion: 23:49 Date Urinary Catheter Removed: 03/29/24 Time Urinary Catheter Discontinued: 02:59 History History History 2 Term 2 0 Miscarriages/Ectopic 0 Living Children 2 Past Pregnancies Del. Date GA/Weeks Outcome Route Wt Inf Gender Labor Lgth Comp. Anesth esia Location 03/29/24 39 live - full term Vaginal Female regional Discharge Data Studies Completed and Pending Laboratory Results WBC 13.04 10^3/uL (3.29-11.43) H 03/29/24 15:52 RBC 3.41 10^6/uL (3.85-5.65) L 03/29/24 15:52 Hgb 10.70 g/dL (11.27-16.99) L 03/29/24 15:52 Hct 31.5 % (36-47) L 03/29/24 15:52 MCV 92.4 fl (85-98) 03/29/24 15:52 MCH 31.4 pg (27-33) 03/29/24 15:52 MCHC 34.0 g/dL (30-55) 03/29/24 15:52 RDW 13.7 % (12.1-15.1) 03/29/24 15:52 Plt Count 219 10^3/cmm (157-399) 03/29/24 15:52 MPV 9.8 fL (7.4-10.4) 03/29/24 15:52 Neut % (Auto) 73.6 % 03/28/24 21: Lymph % (Auto) 18.5 % 03/28/24 21: Sunflower % (Auto) 5.5 % 03/28/24: Eos % (Auto) 0.7 % 03/28/24: Baso % (Auto) 0.3 % 03/28/24: Neut # (Auto) 8.81 10^3/uL (1.8-7.7) H 03/28/24: Lymph # (Auto) 2.2 10^3/uL (0.8-4.8) 03/28/24 21: Sunflower # (Auto) 0.7 10^3/uL (0.2-0.9) 03/28/24: Eos # (Auto) 0.1 10^3/uL (0.0-0.8) 03/28/24 21: Baso # (Auto) 0.0 10^3/uL (0.0-0.1) 03/28/24: Nucleated RBC % (auto) 0 % 03/28/24 21: Nucleated RBCs # 0.0 /100WBC 03/28/24 21: Blood Type O Positive 03/28/24 21: Rho(D) Type Rh positive 03/28/24 21: Antibody Screen Negative 03/28/24 21: Vitals Last Vital Signs Temp 98.2 F 03/29/24 21:22 Pulse 82 03/30/24 05:24 Resp 17 03/30/24 05:24 BP 106/72 03/30/24 05:24 Pulse Ox 97 03/30/24 05:24 O2 Del Method Room Air 03/30/24 05:24 Results Labs OB ([facility]): Obstetrics US 03/06/24 Obstetrics US/Biophysical Profile Blood Type O Positive 03/28/24 Antibody Screen Negative 03/28/24 Hct 31.5 % (36-47) L 03/29/24 Hgb 10.70 g/dL (11.27-16.99) L 03/29/24 Rho(D) Type Rh positive 03/28/24 Plt Count 219 10^3/cmm (157-399) 03/29/24 Hep Bs Antigen Non-reactive (Nonreactive) 09/04/23 Hepatitis C Antibody Non-reactive (Nonreactive) 09/04/23 Rubella IgG Antibody > 500.0 IU/mL (0.0-10.0) H 09/04/23 RPR Nonreactive (Nonreactive) 09/04/23 HIV 1&2 Ab & HIV 1 Ag Non-reactive (Non-Reactiv) 09/04/23 C.trachomatis RNA (TMA) Not detected (NOT DETECTED) N.gonorrhoeae RNA (TMA) Not detected (NOT DETECTED) T. vaginalis Amp RNA Not detected (NOT DETECTED) 09/27/23 Chlamydia/GC Comment See note 09/27/23 Cystic Fibrosis Screen Negative 09/27/23 Gest Glucose Tolerance 129 mg/dL (70-139) 12/12/23 Urine Opiates Screen Negative ng/mL (Negative) 09/04/23 Ur Barbiturates Screen Negative ng/mL (Negative) 09/04/23 Ur Phencyclidine Scrn Negative ng/mL (Negative) 09/04/23 Ur Amphetamines Screen Negative ng/mL (Negative) 09/04/23 U Benzodiazepines Scrn Negative ng/mL (Negative) 09/04/23 Urine Cocaine Screen Negative ng/mL (Negative) 09/04/23 U Marijuana (THC) Screen Negative ng/mL (Negative) 09/04/23 Micro Urine Specimen 09/04/23 Pap Smear Interpret See note 09/27/23 Discharge Plan Discharge Patient Disposition: Home Condition: Stable Prescriptions: Continued Gummies 400 mcg-35 mg- 25 mg-5 mg tablet,chewable 1 tab PO DAILY Discharge Orders: Discharge Order (Routine); Ordered 03/30/24 Ordered By: Marycruz Ellis Discharge Diet: Regular Discharge Activity: Increase activity as tolerated Patient Instructions: Depression (DC), Opioid Safety (DC), Preeclampsia and Eclampsia After Delivery (GEN), Hemorrhage (DC), OB D&C - [facility], OB Food/Drug Interaction Guide, Opioid Safety, OB Home Care, OB Vaginal Deliveries - [facility], Abnormal Bleeding Activity Restrictions/Additional Instructions: No heavy lifting pushing or pulling no sexual intercourse x 6 weeks. Assessment: S/p viable female Acute blood loss anemia?asymptomatic Plan of Treatment: Discharge to home. Follow-up with Dr. Doyle in 4 to 6 weeks Continue vitamins Discharge Attestations [employer] Time Spent in Discharge Care*: less than 30 min Coding Level of Care Code Acute Code for Chg Fwd Diagnoses Spontaneous vaginal delivery O80 Meconium stained amniotic fluid, delivered, current hospitalization O77.0 Nuchal cord History of depression Z87.59; Z86.59 Supervision of other normal Z34.80
[2024-03-30] MEDS: docusate sodium 100 mg Capsule PO (10:13)
[2024-03-30] MEDS: ibuprofen 800 mg tablet PO (10:13)
[2024-03-30] MEDS: PRENATAL VIT NO.130/IRON/FOLIC 1 EACH TABLET PO (10:13)
[2024-03-30 11:20] VITALS: BP 117/78; PULSE 87; TEMP 37.1
== END 2024-03-30 11:25 | disposition home or self-care (01) | DRG 807 ==
LOC: OPOB 21:36 → OBGYN 21:36
PROVIDERS: Admitting Provider Obstetrics & Gynecology; Visit Provider Obstetrics & Gynecology
DX: O77.0 Labor and delivery complicated by meconium in amniotic fluid (principal); Z37.0 Single live birth; O69.81X0 Labor and delivery complicated by cord around neck, without compression, not applicable or unspecified; Z3A.39 39 weeks gestation of pregnancy; Z86.59 Personal history of other mental and behavioral disorders
CPT/HCPCS: 36415; 51702; 59025; 59409; 85025; 85027; 86850; 86900; 99211; J2590; J2795; J7120; J7121